=== PATIENT | female | born 2000 | race Caucasian/White ===

== ENCOUNTER 2022-10-31 10:27 | Emergency (ER) | payer OTHER ==
[~2022-10-31] VITALS: Ht 165.1 cm; Wt 131.5 kg
[2022-10-31 10:33] VITALS: BP 150/98
== END 2022-10-31 12:29 | disposition home or self-care (01) ==
LOC: ER 10:27
DX: S92.255A Nondisplaced fracture of navicular [scaphoid] of left foot, initial encounter for closed fracture (principal); W01.0XXA Fall on same level from slipping, tripping and stumbling without subsequent striking against object, initial encounter
CPT/HCPCS: 73630

== ENCOUNTER 2022-11-26 22:39 | Emergency (ER) | payer OTHER ==
[~2022-11-26] VITALS: Ht 165.1 cm; Wt 127.0 kg
[2022-11-26 23:03] VITALS: BP 158/78
== END 2022-11-27 00:30 | disposition home or self-care (01) ==
LOC: ER 22:39
DX: S92.252A Displaced fracture of navicular [scaphoid] of left foot, initial encounter for closed fracture (principal); W10.9XXA Fall (on) (from) unspecified stairs and steps, initial encounter
CPT/HCPCS: 29515; 73630; 99283-25

== ENCOUNTER 2023-01-05 22:20 | Emergency (ER) | payer OTHER ==
[~2023-01-05] VITALS: Ht 165.1 cm; Wt 131.5 kg
[2023-01-05 22:29] VITALS: BP 136/122
== END 2023-01-05 22:39 | disposition home or self-care (01) ==
LOC: ER 22:20
DX: S92.255D Nondisplaced fracture of navicular [scaphoid] of left foot, subsequent encounter for fracture with routine healing (principal); X58.XXXD Exposure to other specified factors, subsequent encounter; I10 Essential (primary) hypertension
CPT/HCPCS: 73630; 99283-25

== ENCOUNTER → 2023-10-09 | Outpatient (CLI) | payer OTHER | END | disposition home or self-care (01) | LOC: LAB 17:21 → LAB SHORT 17:21 | DX: J03.90 Acute tonsillitis, unspecified (principal); Z72.51 High risk heterosexual behavior | CPT/HCPCS: 87081 ==